=== PATIENT | male | born 2000 | race African-American/Black ===

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

== ENCOUNTER 2021-08-21 01:38 | Emergency (ER) | payer BC ==
[~2021-08-21] VITALS: Ht 188 cm; Wt 70.4 kg
[2021-08-21 01:40] VITALS: BP 129/81
--- NOTE | 2021-08-21 01:43 | PHYS DOC ---
Adult General HPI HPI Patient is a 21-year-old male who presents with multiple complaints including chest wall pain is been going on about 7 to 10 days, worse with movement mostly located on left lateral wall. Denies any recent travel, traumas, illnesses, fevers chills shortness of breath or wheezing, abdominal pain, nausea, vomiting. Denies any dyspnea on exertion, orthopnea, PND or edema. Denies any personal cardiac history or family cardiac history before 50. Review of Systems Review of Systems Review of systems otherwise unremarkable except noted in HPI Physical Exam Physical Exam Constitutional: Well developed, well nourished, no acute distress, non-toxic appearance. [] HENT: Normocephalic, atraumatic, bilateral external ears normal, oropharynx moist, no oral exudates, nose normal. [] Eyes: PERRLA, EOMI, conjunctiva normal, no discharge. [] Neck: Normal range of motion, no tenderness, supple, no stridor. [] Cardiovascular:Heart rate regular rhythm, no murmur [] Lungs & Thorax: Bilateral breath sounds clear to auscultation [] Abdomen: Bowel sounds normal, soft, no tenderness, no masses, no pulsatile masses. [] Skin: Warm, dry, no erythema, no rash. [] Back: No tenderness, no CVA tenderness. [] Extremities: No tenderness, no cyanosis, no clubbing, ROM intact, no edema. [] Neurologic: Alert and oriented X 3, normal motor function, normal sensory function, no focal deficits noted. [] Psychologic: Affect normal, judgement normal, mood normal. [] EKG EKG [] Radiology/Procedures Radiology/Procedures [] Heart Score C/O Chest Pain: N/A Risk Factors: Risk Factors: DM, Current or recent (<one month) smoker, HTN, HLP, family history of CAD, obesity. Risk Scores: Risk Factors: DM, Current or recent (<one month) smoker, HTN, HLP, family history of CAD, obesity. Course & Med Decision Making Course & Med Decision Making Patient is a 21-year-old male who presents with multiple complaints including chest wall pain Vital signs not concerning. Physical exam noted above. EKG with normal rate, normal rhythm, normal QTC, no STEMI. Chest x-ray not concerning. Discussed differential diagnosis with family. Discussed symptom control at home. Advised to follow-up in the morning with primary care physician to set up a follow-up. Gave return precautions to the ED. Family grateful, verbalized understanding and agreed with plan of discharge. Dragon Disclaimer Dragon Disclaimer This electronic medical record was generated, in whole or in part, using a voice recognition dictation system. Departure Departure: Impression: Primary Impression: Chest pain Disposition: HOME / SELF CARE / HOMELESS Condition: GOOD Referrals: MEHUL ESCAMILLA MD (PCP) Patient Instructions: Chest Pain (Nonspecific) Additional Instructions: Thank you for coming into the emergency department tonight and allowing us to take care of you. Please read the attached information carefully to go back over some of the things we discussed. You can use Tylenol, ibuprofen and ice as needed. As we discussed in the emergency department we did rule out in the immediate a heart attack, broken ribs and pneumonia. But as we discussed just because we did not find anything emergent currently that does not mean there is not something that needs to be reevaluated. Please follow-up in the morning with your primary care physician and set up a visit for reevaluation and continued treatment and management. Please come back with new or concerning symptoms as we discussed. TRISTIAN MORALES MD Aug 21, 2021 01:43
--- NOTE | 2021-08-21 02:18 | EKG ---
[address] [address] Test Date: 2021-08-21 Test Time: 01:57:29 Pat Name: CHRISTINE HAY Department: Room: Gender: M Photography Instructor: : 2000 Requested By: TRISTIAN MORALES Order Number: [id number] Reading MD: Regan Jimenez Measurements Intervals Sullivan Rate: 54 P: 58 PA: 140 QRS: 86 QRSD: 94 T: 78 QT: 370 QTc: 356 Interpretive Statements SINUS RHYTHM Electronically Signed On 08-23-2021 12:01:54 [employer] by Regan Jimenez
--- NOTE | 2021-08-21 03:40 | RAD ---
AP chest x-ray HISTORY: Chest pain. FINDINGS: Heart size is normal. The mediastinal silhouette is normal. No pneumothorax, pulmonary opac ities or pleural effusions. The bones are unremarkable. IMPRESSION: Normal exam. Electronically signed by: Roberto Calle MD (08/21/2021 3:37 AM) [facility] [place]
== END 2021-08-21 02:32 | disposition home or self-care (01) ==
LOC: ER 01:38
DX: R07.89 Other chest pain (principal)
CPT/HCPCS: 71045; 93005; 99283